=== PATIENT | female | born 1995 | race Caucasian/White ===

== ENCOUNTER 2021-11-18 15:45 | Emergency (ER) | payer SELFPAY ==
[~2021-11-18] VITALS: Ht 152.4 cm; Wt 59.0 kg
[2021-11-18 15:45] VITALS: BP_SYST 120
--- NOTE | 2021-11-18 16:15 | NUR ---
Cinthya phelps in ED - 11/18/21 at [address] at bedside examining patient.
--- NOTE | 2021-11-18 16:18 | NUR ---
Patient to ER bed 08 to gown for evaluation. Side rails up.
--- NOTE | 2021-11-18 16:20 | NUR ---
ER Dr. ALNE at bedside examining patient.
--- NOTE | 2021-11-18 16:21 | NUR ---
PATIENT BROUGHT IN AMBULATORY FROM HOME AOX4 COMPLAIING OF HEAD PAIN WITH NAUSEA AND DIZZINESS S/P FALL ON "HARD SURFACE". PATIENT DENIES KO. PATIENT HAS A 4 CM DIAMETER HEMATOMA TO THE OCCIPTAL AREA OF THE SCALP PAIN 11/18. NO OTHER COMPLAINTS/INJURIES PER PATIENT OR NOTED.
--- NOTE | 2021-11-18 17:11 | NUR ---
patient off unit to ct scan.
--- NOTE | 2021-11-18 17:22 | NUR ---
patient returned from CT Scan.
[2021-11-18 18:53] VITALS: BP_SYST 116
--- NOTE | 2021-11-18 18:53 | NUR ---
Patient given written and verbal discharge instructions and verbalizes understanding. ER MD discussed with patient the results and treatment provided. Patient in stable condition. ID arm band removed. Rx of Brocket and Motrin given. Patient educated on pain management and to follow up with PMD. Pain Scale 0/10 Opportunity for questions provided and answered. Medication side effect fact sheet provided.
[2021-11-18] MEDS ORDERED: IBUPROFEN 400 MG TABLET ONE (22:48)
== END 2021-11-18 18:53 | disposition home or self-care (01) ==
LOC: SED 15:45
DX: S09.90XA Unspecified injury of head, initial encounter (principal); W18.39XA Other fall on same level, initial encounter; Y93.89 Activity, other specified; Y92.89 Other specified places as the place of occurrence of the external cause; Y99.8 Other external cause status
CPT/HCPCS: 70450-TC; 76376; 81025; 99284